=== PATIENT | male | born 1950 | race Caucasian/White ===

== ENCOUNTER 2017-04-16 12:11 | Day surgery (SDC) | payer MEDICARE, OTHER ==
[2017-04-16] MEDS ORDERED: NORMAL SALINE 1,000 ML IV PRN (12:30)
[2017-04-16] MEDS ORDERED: ceFAZolin SODIUM 2 GM in DEXTROSE 5 % IN WATER 50 ML IV PRN ×2 (13:03)
[2017-04-16] MEDS ORDERED: LIDOCAINE HCL 10 APPL CARTRIDGE TP ONE (14:10)
--- NOTE | 2017-04-16 14:29 | OR ---
Operative Report - Dictated Report Narrative: Location: Main OR Anesthesia: MAC Preoperative Diagnosis: Gross hematuria Postoperative Diagnosis: Abnormal bladder neck anatomy post prostatectomy with likely previous urine leak now healed Procedure: #1 flexible cystoscopy with washing for cytology and culture Indications: 67-year-old male with prostate cancer post prostatectomy. Developed gross hematuria. CT scan with very small renal stone and vascular calcifications, no obstruction, there is a cyst with some calcification within it Bosniak 2 to 2F. Above-mentioned procedures indicated to rule out bladder pathology Description: Consent obtained. Placed in the supine position. Prepped and draped. Time-out taken . Mac/IV anesthesia administered Flexible Scope inserted into the urethra and navigated to the bladder with ease. No tumors stones or suspicious lesions. Bladder capacity looks a little increased. No real trabeculation. Right ureteric orifice was in the normal location. Left ureteric orifice was closer to the reconstructed bladder neck 2 areas of mucosa near the area of the anastomosis which formed blind ending channels my suspicion is probably had urine leak after prostate surgery which is now healed. There was no pathology that was concerning but I could not enter either of those areas. Washing was obtained sent for cytology and culture. Prostate surgically absent. No evidence of scarring or stricturing. Rest of urethra was normal. EBL: 0 Specimen: Washing for cytology and culture Condition: tolerate procedure Important Findings: No cause for the hematuria. Ureteral anatomy different from prior surgery and the bladder neck has a couple of areas that are probably healed diverticula likely from prior surgery possible area where he had urine leak. FOLLOW UP: I will see him in 4 months with an ultrasound to evaluate Bosniak 2 cyst. UA. BMP. We will go home with Levaquin for a couple of days.
[2017-04-16 15:34] VITALS: BP 134/69
== END 2017-04-16 12:12 | disposition home or self-care (01) ==
LOC: AMB 12:11
PROVIDERS: ATTEND Urology
PROC: 3E1K88X Irrigation of Genitourinary Tract using Irrigating Substance, Via Natural or Artificial Opening Endoscopic, Diagnostic (ICD-10-PCS; 2017-04-16)
PROC: 0TJB8ZZ Inspection of Bladder, Via Natural or Artificial Opening Endoscopic (ICD-10-PCS; principal; 2017-04-16 14:45)
DX: R31.0 Gross hematuria (principal); E11.9 Type 2 diabetes mellitus without complications; I10 Essential (primary) hypertension; E66.9 Obesity, unspecified; Z68.31 Body mass index [BMI] 31.0-31.9, adult; Z87.891 Personal history of nicotine dependence; Z85.46 Personal history of malignant neoplasm of prostate